=== PATIENT | male | born 1945 | race Caucasian/White ===

== ENCOUNTER 2017-11-07 00:02 | Inpatient (IN) | payer MEDICARE, OTHER, SELFPAY ==
[2017-11-07] VITALS (20 sets, daily range): BP systolic 118–164; BP diastolic 64–88; PULSE 65–94; RESP 10–18; TEMP 36.3–36.9; O2SAT 88–98; BMI 33.8
--- NOTE | 2017-11-07 | PATH_ITS ---
[facility] Accession Number: [id number] . 01 Material submitted: . GALLBLADDER AND CONTENTS . 02 Diagnosis: Gallbladder and Contents, Laparoscopic Cholecystectomy: Acute and gangrenous cholecystitis. [facility]/11/09/2017 . 02 Electronically signed: . Omaira Tomas MD, Pathologist NPI- [id number] . 01 Gross description: . Received in formalin, labeled gallbladder and contents, is an opened gallbladder (length-8.5 cm, diameter-4.3 cm) with a mortensen-castillo smooth and shiny serosa and a patent cystic duct. No lymph nodes are identified. The lumen contains red-brown solid soft friable material. No calculi are identified. The mucosa is red-brown and green with focal erosion and smooth and flat areas. The wall is up to 0.2 cm thick. No nodules, masses or lesions are identified. Section code: (A1) cystic duct resection margin and two serial sections from the body; (A2) two longitudinal sections from the fundus. ([id number]) /[facility] . 02 Pathologist provided ICD-10: K81.0 . 02 CPT . 195104 Performed at: 01 [facility] [address], [place], [place] [id number] MD Thee Bashir MD Phone: [phone] Performed at: 02 [facility] [address] [place], [place] [id number] MD Dylan Escobar MD Phone: [phone]
--- NOTE | 2017-11-07 00:15 | DI.US.S_ITS ---
PROCEDURE: US ABDOMEN COMPLETE INDICATIONS: 72-year-old man with severe epigastric pain TECHNIQUE: Real-time scanning was performed of the abdominal and retroperitoneal organs, with image documentation. COMPARISON: None. FINDINGS: Liver: Liver is normal in size and homogeneous in echotexture. There are a couple of simple appearing cysts in the left hepatic lobe measuring 2.1 cm and 1.9 cm, respectively. Gallbladder: There is a 1.8 cm non-mobile stone in the gallbladder neck. No gallbladder wall thickening, pericholecystic fluid or sonographic Saavedra's sign. Biliary ducts: Intrahepatic bile ducts are non-dilated. Extrahepatic bile duct caliber measures 4.8 mm. Normal is 6-7 mm or less in diameter, or 10 mm or less post-cholecystectomy. Pancreas: Visualized portions of the pancreas are sonographically normal. Spleen: Spleen is normal in size and homogeneous in echotexture. Kidneys: Kidneys are normal in size and echotexture. Right kidney measures 11.9 cm long; left kidney measures 10.5 cm long. No hydronephrosis or nephrolithiasis. No solid masses. Aorta: Visualized aorta is normal in caliber at less than 3 cm. Iliacs: Proximal common iliac arteries are obscured by overlying bowel gas. IVC: Intrahepatic inferior vena cava is not visualized. Miscellaneous: No free abdominal fluid. IMPRESSION: 1. Cholelithiasis. There is a 1.8 cm non-mobile stone in the gallbladder neck. No collateral thickening, pericholecystic fluid collection or sonographic Saavedra sign. 2. A couple of simple cysts in the left hepatic lobe. No significant discrepancy with the shift superintendent radiology preliminary report. Dictated by: Ledy Artis M.D. on 11/07/2017 at 7:54 Approved by: Ledy Artis M.D. on 11/07/2017 at 7:59
[2017-11-07] MEDS: SODIUM CHLORIDE 0.9% 1,000 ML 1000 ML IV (00:39)
[2017-11-07] MEDS: ONDANSETRON 4 MG/2 ML INJ IV (00:40)
[2017-11-07] MEDS: HYDROMORPHONE 0.5 MG INJ IV ×2 (00:43→02:46)
[2017-11-07 00:44] LABS: Add Manual Diff / Slide Review NO; Basophils Percent Auto 0.3 % (0-2); Eosinophils Percent Auto 0.3 % (2-4); Hematocrit 43.1 % (41-53); Hemoglobin 14.5 g/dL (13.5-17.5); Lymphocytes Percent Auto 2.7 % (25-40); Mean Corpuscular HGB Conc 33.6 % (30-36); Mean Corpuscular Hemoglobin 29.8 PG (26-34); Mean Corpuscular Volume 88.8 fL (80-100); Monocytes Percent Auto 7.2 % (3-14); Neutrophils Absolute Auto 19700 /uL (3000-5900); Neutrophils Percent Auto 89.5 % (50-75); Platelet Count 135 X10^3/uL (150-400); Red Blood Cell Count 4.85 X10^6/uL (4.5-5.9); Red Cell Distribution Width 14.2 % (11.6-14.8)
[2017-11-07 00:55] LABS: Alanine Aminotransferase 35 IU/L (21-72); Albumin 3.8 g/dL (3.5-5.0); Albumin Globulin Ratio 1.4 (1.0-2.8); Alkaline Phosphatase 102 U/L (38-126); Aspartate Aminotransferase 31 IU/L (17-59); Bilirubin Total 1.2 mg/dL (0.2-1.3); Calcium 8.9 mg/dL (8.4-10.2); Creatine Kinase 49 U/L (55-170); Estimated Glomerular Filt Rate > 60.0 mL/min (>60); Globulin 2.8 g/dL (1.7-4.1); Glucose 127 mg/dL (80-110); Lipase 25 U/L (23-300); Sodium 138 mmol/L (137-145); Total Protein 6.6 g/dL (6.3-8.2)
[2017-11-07 00:58] LABS: HEMOLYSIS 80 (0-50)
[2017-11-07 00:59] LABS: Potassium 3.9 mmol/L (3.4-5.1)
[2017-11-07 01:07] LABS: Troponin I < 0.012 ng/mL (0.01-0.034)
--- NOTE | 2017-11-07 01:38 | ED_ITS ---
HPI - Abdominal Pain General Chief Complaint: Abdominal Pain Stated Complaint: STATES CHEST PAIN BELOW DIAPHRAGM Time Seen by Provider: 11/07/17 00:05 Source: patient and family Mode of arrival: ambulatory Limitations: no limitations History of Present Illness HPI narrative: Patient presents to the emergency department today with a chief complaint of severe epigastric pain with radiation to his back that started tonight at 6:00 p.m. he denies provocation or palliation of his pain. He states he is nauseated but denies any vomiting. He had similar symptoms a few days ago that lasted about 3 hr and were perhaps more severe. He denies associated symptoms such as dizziness, lightheadedness or weakness. He denies any shortness of breath. He denies alcohol or history of gallbladder or pancreas problems. MD complaint: abdominal pain Onset (ago): hour(s) Pain Consistency: constant Location: epigastric Severity: severe Quality: stabbing Radiation: back Migration to: no migration Relieving factors: nothing Exacerbating factors: nothing Associated symptoms: nausea Related Data Home Medications Medication Instructions Recorded Confirmed amlodipine 11/07/17 atorvastatin 11/07/17 citalopram 11/07/17 finasteride 11/07/17 omeprazole 11/07/17 tamsulosin 11/07/17 Allergies Allergy/AdvReac Type Severity Reaction Status Date / Time No Known Drug Allergies Allergy Verified 11/07/17 00:39 Review of Systems Review of Systems All systems reviewed & are unremarkable except as noted in HPI and below Constitutional Denies chills, Denies fever(s), Denies lethargy and Denies weakness Eyes Denies change in vision, Denies eye discharge, Denies irritation and Denies loss of vision Cardiovascular Denies chest pain, Denies irregular heart rhythm, Denies lightheadedness, Denies palpitations and Denies orthopnea Gastrointestinal Gastrointestinal: Reports abdominal pain, Denies change in bowel habits, Denies diarrhea, Denies nausea and Denies vomiting Genitourinary Denies hematuria, Denies flank pain, Denies urinary incontinence and Denies urinary urgency Musculoskeletal Denies back pain, Denies muscle weakness, Denies numbness and Denies tingling Neurologic Denies confusion, Denies loss of vision, Denies numbness, Denies tingling and Denies weakness Psychiatric Denies anxiety, Denies confusion, Denies depression, Denies homicidal ideation and Denies suicidal ideation Endocrine Denies palpitations Hematologic/Lymphatic Denies easy bruising Exam Narrative Exam Narrative: Pleasant 72-year-old male in no obvious, significant stress Initial Vital Signs Initial Vital Signs: Vital Signs Temperature 97.6 F 11/07/17 00:13 Pulse Rate 86 11/07/17 00:13 Respiratory Rate 18 11/07/17 00:13 Blood Pressure 164/88 H 11/07/17 00:13 Pulse Oximetry 96 11/07/17 00:13 Const General: cooperative and well developed Nutritional Appearance: well nourished Orientation: alert, awake, oriented x3 and not confused HENIN Head: normocephalic and atraumatic Ears: external ears normal and TM's normal bilaterally Nose: external nose normal and No nasal discharge Face and sinus: sinuses nontender, face symmetric, no sinus tenderness and No dry mucous membranes Mouth: oral mucosae normal and moist mucous membranes Teeth and gingiva: dentition normal Throat: tonsils normal and uvula midline Chest Chest: normal inspection of the chest Resp Effort & Inspection: normal respiratory effort, able to speak in complete sentences, no respiratory distress and no use of accessory muscles Auscultation: clear to auscultation bilaterally, no rales, no rhonchi and no wheezes GI Inspection: non-distended Palpation: soft, no hepatosplenomegaly, No guarding, No pulsatile mass and tender Auscultation: normal bowel sounds Back/Spine/Pelvis Back: No CVA tenderness Cervical Spine: cervical ROM normal and No pain with cervical ROM Thoracic/Lumbar Spine: thoracic and lumbar spine normal to inspection Neuro General: alert, oriented x3, gait normal and no focal motor deficits Speech: speech normal Psych Appearance: well kempt Mental Status: mental status grossly normal Attitude: cooperative Thought Content: normal and suicidality Judgment: judgment good Course Orders Ordered: ED Orders 11/07/17 00:15 US abdomen complete Stat 11/07/17 00:16 EKG-12 Lead Stat 11/07/17 00:39 Complete Blood Count AUTO DIFF Stat Comprehensive Metabolic Panel Stat Lipase Stat Troponin with CK Cardiac Panel Stat Sodium Chloride (Normal Saline 0.9%) 1,000 mls @ 150 mls/hr IV CONT LEWIS Last Admin: 11/07/17 02:24 Dose: 150 mls/hr Piperacillin/Tazobactam/Dextrose (Zosyn) 3.375 gm in 50 mls @ 100 mls/hr IV Q6H LEWIS Ondansetron HCl (Zofran) 4 mg IV Q4HR PRN PRN Reason: Nausea And Vomiting Last Admin: 11/07/17 00:40 Dose: 4 mg Discontinued Medications Hydromorphone HCl (Dilaudid) 0.5 mg IV NOW ONE Stop: 11/07/17 00:17 Last Admin: 11/07/17 00:43 Dose: 0.5 mg Sodium Chloride (Normal Saline 0.9%) 1,000 mls @ 1,000 mls/hr IV BOLUS ONE Stop: 11/07/17 01:15 Last Infusion: 11/07/17 01:36 Dose: 0 mls/hr Admin: 11/07/17 00:39 Dose: 1,000 mls/hr Consultations Consultation #1: Upon receipt of ultrasound I placed a call to the on-call surgeon, Dr. Weaver. We discussed his history and physical as well as elevated white blood cell count and ultrasound findings and felt this was sufficient for diagnosis for acute cholecystitis. She recommends admission, IV fluids at 150 mL/hr and Zosyn. Time: 01:37 Vital Signs - 8 hr 11/07/17 00:13 Temperature 97.6 F Pulse Rate 86 Respiratory Rate 18 Blood Pressure 164/88 H Pulse Oximetry 96 MDM - Abdominal Pain Lab Data Result diagrams: 11/07/17 00:39 11/07/17 00:39 Lab Results 11/07/17 11/07/17 Range/Units 00:39 00:39 WBC 22.0 H (4.5-11.0) X10^3/uL RBC 4.85 (4.5-5.9) X10^6/uL Hgb 14.5 (13.5-17.5) g/dL Hct 43.1 (41-53) % MCV 88.8 (80-100) fL MCH 29.8 (26-34) PG MCHC 33.6 (30-36) % RDW 14.2 (11.6-14.8) % Plt Count 135 L (150-400) X10^3/uL Neut % (Auto) 89.5 H (50-75) % Lymph % (Auto) 2.7 L (25-40) % [place] % (Auto) 7.2 (3-14) % Eos % (Auto) 0.3 L (2-4) % Baso % (Auto) 0.3 (0-2) % Neut # (Auto) 24656 H (4243-6371) /uL Sodium 138 (137-145) mmol/L Potassium 3.9 (3.4-5.1) mmol/L Chloride 100.0 (98-107) mmol/L Carbon Dioxide 27.0 (22-32) mmol/L BUN 25.0 H (9-20) mg/dL Creatinine 1.00 (0.66-1.25) mg/dL Estimated GFR > 60.0 (>60) mL/min BUN/Creatinine Ratio 25.0 H (6-22) Glucose 127 H (80-110) mg/dL Calcium 8.9 (8.4-10.2) mg/dL Total Bilirubin 1.2 (0.2-1.3) mg/dL AST 31 (17-59) IU/L ALT 35 (21-72) IU/L Alkaline Phosphatase 102 (38-126) U/L Total Creatine Kinase 49 L (55-170) U/L Troponin I < 0.012 (0.01-0.034) ng/mL Total Protein 6.6 (6.3-8.2) g/dL Albumin 3.8 (3.5-5.0) g/dL Globulin 2.8 (1.7-4.1) g/dL Albumin/Globulin Ratio 1.4 (1.0-2.8) Lipase 25 (23-300) U/L Discharge Plan Departure Patient Disposition: Admitted As Inpatient Clinical Impression: Acute cholecystitis Admit Date/Time: 11/07/17 02:24 Admit Provider: Lyubov Weaver
[2017-11-07] MEDS: SODIUM CHLORIDE 0.9% 1,000 ML 150 ML IV (02:24)
[2017-11-07] MEDS: PIPERACILLIN-TAZO 3.375 GM/50 ML FROZ.PIGGY IV ×4 (02:46→20:04)
--- NOTE | 2017-11-07 02:57 | PC.NURSE ---
PT MEDICATED WITH ADDITIONAL 2ND DOSE OF DILAUDID BEFORE TRANSFERRING TO ADMITTED ROOM PER PT'S REQUEST.
[2017-11-07 03:20] LABS: Appearance Urine UA CLEAR; Bilirubin Urine UA NEGATIVE (NEGATIVE); Color Urine UA YELLOW; Glucose Urine UA NEGATIVE (Negative); Ketones Urine UA TRACE (NEGATIVE); Leukocyte Esterase Urine UA NEGATIVE (NEGATIVE); Nitrite Urine UA NEGATIVE (NEGATIVE); Occult Blood Urine UA TRACE-LYSED (Negative); Protein Urine UA NEGATIVE (Negative); Urobilinogen Urine UA 0.2 E.U./dL (0.2)
[2017-11-07 03:21] LABS: Culture Indicated Urine Cult Not Indicated; RBC Urine 0-1/HPF (0-5/HPF)
--- NOTE | 2017-11-07 05:01 | PC.ADMIT ---
[facility] Admission Note: The patient,Billy Velasquez,72 y/o, was given written information regarding hospital policies, unit procedures and contact persons. Patient's smoking status: Never smoker. Vital Signs - 8 hr 11/07/17 00:13 11/07/17 02:58 11/07/17 03:14 Temperature 97.6 F 98.0 F Pulse Rate 86 74 76 Respiratory Rate 18 14 18 Blood Pressure 164/88 H 132/80 H 136/81 H Pulse Oximetry 96 95 94 Pt arrived with and mother. Pt denied pain, stated he was comfortable. PT tolerating fluids well. Pt and family oriented to hospital room and procedures. PT voided in ED, not measured- will continue to monitor. Pt bed in lowest, locked position. belongings and call light within reach. Pt uses call light. ambulates steady gait. Pt compliant and good historian with admission process. will continue to monitor. questions answered, pt states he is going to fall asleep.
[2017-11-07] MEDS: DEXTROSE 5%-0.45% NS 1,000 ML 100 ML IV ×3 (11:30→23:50)
[2017-11-07 13:09] LABS: Add Manual Diff / Slide Review NO; Basophils Percent Auto 0.4 % (0-2); Eosinophils Percent Auto 0.7 % (2-4); Hematocrit 39.6 % (41-53); Hemoglobin 13.2 g/dL (13.5-17.5); Lymphocytes Percent Auto 4.5 % (25-40); Mean Corpuscular HGB Conc 33.3 % (30-36); Mean Corpuscular Hemoglobin 29.6 PG (26-34); Mean Corpuscular Volume 88.9 fL (80-100); Monocytes Percent Auto 7.3 % (3-14); Neutrophils Absolute Auto 15200 /uL (3000-5900); Neutrophils Percent Auto 87.1 % (50-75); Platelet Count 105 X10^3/uL (150-400); Red Blood Cell Count 4.45 X10^6/uL (4.5-5.9); Red Cell Distribution Width 14.3 % (11.6-14.8); White Blood Cell Count 17.5 X10^3/uL (4.5-11.0)
[2017-11-07 13:40] LABS: Alanine Aminotransferase 81 IU/L (21-72); Albumin 2.8 g/dL (3.5-5.0); Albumin Globulin Ratio 1.2 (1.0-2.8); Alkaline Phosphatase 105 U/L (38-126); Aspartate Aminotransferase 64 IU/L (17-59); BUN Creatinine Ratio 22.2 (6-22); Bilirubin Total 1.4 mg/dL (0.2-1.3); Calcium 8.3 mg/dL (8.4-10.2); Estimated Glomerular Filt Rate > 60.0 mL/min (>60); Globulin 2.4 g/dL (1.7-4.1); Glucose 105 mg/dL (80-110); HEMOLYSIS 27 (0-50); Potassium 3.8 mmol/L (3.4-5.1); Sodium 139 mmol/L (137-145); Total Protein 5.2 g/dL (6.3-8.2)
[2017-11-07] MEDS: HYDROMORPHONE PCA 6 MG/30 ML PCA.VIAL 0.7 MG IV (14:29)
--- NOTE | 2017-11-07 15:01 | PC.NURSE ---
Dayshift Note: Pt with uneventful shift. Pt denies pain or nausea. Abdomen slightly firm and distended. Pt on RA, continuous pulse ox, 92-95%. 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 NPO and awaiting surgery. Will continue to monitor, notify MD with changes.
--- NOTE | 2017-11-07 16:52 | PM.HP.1 ---
History of Present Illness Chief complaint: STATES CHEST PAIN BELOW DIAPHRAGM Narrative: Billy Vleasquez is a 72 year old male who presented to the emergency department with complaint of right upper quadrant pain and bloating. He reports that he had a similar pain about 3 days ago and it was perhaps even more severe than the pain he experienced last evening. That pain resolved after about 3 hr but he was not willing to go through that again for another 3 hr. He was seen and evaluated in the emergency room and diagnosed with acute cholecystitis. He has been admitted to my service for definitive treatment. Patient History Medical History Enlarged prostate (Acute) GERD (gastroesophageal reflux disease) (Acute) High cholesterol (Acute) Hypertension (Acute) Parietal foramina (Acute) Sleep apnea (Acute) Tourettes disease (Acute) Surgical History H/O removal of cyst (Acute) H/O shoulder surgery (Acute) History of spinal fusion (Acute) S/P mitral valve repair (Acute) Family & Social History Family History: Reviewed 11/07/17 by Lyubov Weaver MD Tobacco & Substance Use Smoking Status: Never smoker Alcohol intake: never Meds Home Medications Medication Instructions Recorded Confirmed Type Centrum Silver Men 1 caplet PO DAILY 11/07/17 11/07/17 History amlodipine 2.5 mg PO DAILY 11/07/17 11/07/17 History aspirin 81 mg PO DAILY 11/07/17 11/07/17 History atorvastatin 40 mg PO DAILY 11/07/17 11/07/17 History cholecalciferol (vitamin D3) 2,000 unit PO DAILY 11/07/17 11/07/17 History [Vitamin D3] citalopram 40 mg PO BID 11/07/17 11/07/17 History finasteride 5 mg PO DAILY 11/07/17 11/07/17 History omeprazole 20 mg PO DAILY 11/07/17 11/07/17 History tamsulosin 0.4 mg PO DAILY 11/07/17 11/07/17 History Allergies Allergy/AdvReac Type Severity Reaction Status Date / Time No Known Drug Allergies Allergy Verified 11/07/17 00:39 Review of Systems Review of Systems All systems reviewed & are unremarkable except as noted in HPI and below Exam Vital Signs (past 8 hours): Vital Signs - 8 hr 11/07/17 13:00 11/07/17 15:45 11/07/17 16:20 Temperature 97.9 F 98.4 F 98.0 F Pulse Rate 73 72 80 Respiratory Rate 16 18 16 Blood Pressure 129/74 H 126/73 H Pulse Oximetry 95 94 94 11/07/17 16:28 Temperature Pulse Rate Respiratory Rate Blood Pressure 118/80 Pulse Oximetry Pulse Oximetry 94 Oxygen Delivery Method Room Air Narrative Exam Narrative: Very pleasant gentleman in no obvious distress. He denies pain currently and reports he feels better than he did at the time of admission HEENT: Normocephalic and atraumatic, pupils equal round reactive to light accommodation with anicteric sclera Lungs: Clear to auscultation bilaterally Heart: Regular rate and rhythm without murmur Abdomen: Soft, tender to palpation in the right upper quadrant with some voluntary guarding. Active bowel sounds. Multiple healed abdominal incisions without defect. Extremities: Warm and well perfused. Objective Labs Result Diagrams: 11/07/17 13:00 11/07/17 13:00 Labs: Laboratory Results - last 24 hr 11/07/17 11/07/17 11/07/17 00:39 00:39 02:45 WBC 22.0 H RBC 4.85 Hgb 14.5 Hct 43.1 MCV 88.8 MCH 29.8 MCHC 33.6 RDW 14.2 Plt Count 135 L Neut % (Auto) 89.5 H Lymph % (Auto) 2.7 L [place] % (Auto) 7.2 Eos % (Auto) 0.3 L Baso % (Auto) 0.3 Neut # (Auto) 66426 H Sodium 138 Potassium 3.9 Chloride 100.0 Carbon Dioxide 27.0 BUN 25.0 H Creatinine 1.00 Estimated GFR > 60.0 BUN/Creatinine Ratio 25.0 H Glucose 127 H Calcium 8.9 Total Bilirubin 1.2 AST 31 ALT 35 Alkaline Phosphatase 102 Total Creatine Kinase 49 L Troponin I < 0.012 Total Protein 6.6 Albumin 3.8 Globulin 2.8 Albumin/Globulin Ratio 1.4 Lipase 25 Urine Color Yellow Urine Appearance Clear Urine pH 6.0 Ur Specific [place] 1.010 Urine Protein Negative Urine Glucose (UA) Negative Urine Ketones Trace H Urine Occult Blood Trace-lysed Urine Nitrate Negative Urine Bilirubin Negative Urine Urobilinogen 0.2 Ur Leukocyte Esterase Negative Urine RBC 0-1/hpf Ur Culture Indicated? Cult not indicated Micro UA Comment Not Reportable 11/07/17 11/07/17 13:00 13:00 WBC 17.5 H RBC 4.45 L Hgb 13.2 L Hct 39.6 L MCV 88.9 MCH 29.6 MCHC 33.3 RDW 14.3 Plt Count 105 L Neut % (Auto) 87.1 H Lymph % (Auto) 4.5 L [place] % (Auto) 7.3 Eos % (Auto) 0.7 L Baso % (Auto) 0.4 Neut # (Auto) 96691 H Sodium 139 Potassium 3.8 Chloride 104.0 Carbon Dioxide 26.0 BUN 20.0 Creatinine 0.90 Estimated GFR > 60.0 BUN/Creatinine Ratio 22.2 H Glucose 105 Calcium 8.3 L Total Bilirubin 1.4 H AST 64 H ALT 81 H Alkaline Phosphatase 105 Total Creatine Kinase Troponin I Total Protein 5.2 L Albumin 2.8 L Globulin 2.4 Albumin/Globulin Ratio 1.2 Lipase Urine Color Urine Appearance Urine pH Ur Specific [place] Urine Protein Urine Glucose (UA) Urine Ketones Urine Occult Blood Urine Nitrate Urine Bilirubin Urine Urobilinogen Ur Leukocyte Esterase Urine RBC Ur Culture Indicated? Micro UA Comment Patient: Billy Velasquez MR#: [id number] : 1945 Acct:[id number] Age/Sex: 72 / M Date of Service: 11/07/17 Loc: 213-1 Accession Number: [id number] Procedure: US abdomen complete Ordering Provider: Keagan Wang D.O. PROCEDURE: US ABDOMEN COMPLETE INDICATIONS: 72-year-old man with severe epigastric pain TECHNIQUE: Real-time scanning was performed of the abdominal and retroperitoneal organs, with image documentation. COMPARISON: None. FINDINGS: Liver: Liver is normal in size and homogeneous in echotexture. There are a couple of simple appearing cysts in the left hepatic lobe measuring 2.1 cm and 1.9 cm, respectively. Gallbladder: There is a 1.8 cm non-mobile stone in the gallbladder neck. No gallbladder wall thickening, pericholecystic fluid or sonographic Saavedra's sign. Biliary ducts: Intrahepatic bile ducts are non-dilated. Extrahepatic bile duct caliber measures 4.8 mm. Normal is 6-7 mm or less in diameter, or 10 mm or less post-cholecystectomy. Pancreas: Visualized portions of the pancreas are sonographically normal. Spleen: Spleen is normal in size and homogeneous in echotexture. Kidneys: Kidneys are normal in size and echotexture. Right kidney measures 11.9 cm long; left kidney measures 10.5 cm long. No hydronephrosis or nephrolithiasis. No solid masses. Aorta: Visualized aorta is normal in caliber at less than 3 cm. Iliacs: Proximal common iliac arteries are obscured by overlying bowel gas. IVC: Intrahepatic inferior vena cava is not visualized. Miscellaneous: No free abdominal fluid. IMPRESSION: 1. Cholelithiasis. There is a 1.8 cm non-mobile stone in the gallbladder neck. No collateral thickening, pericholecystic fluid collection or sonographic Saavedra sign. 2. A couple of simple cysts in the left hepatic lobe. No significant discrepancy with the night warehouse manager radiology preliminary report. Dictated by: Ledy Artis M.D. on 11/07/2017 at 7:54 Approved by: Ledy Artis M.D. on 11/07/2017 at 7:59 Assessment & Plan Plan: Plan: Acute cholecystitis and cholelithiasis and a fairly healthy 72-year-old gentleman. We have discussed risks and benefits of laparoscopic cholecystectomy the patient has expressed desire to have procedure.
--- NOTE | 2017-11-07 16:59 | P.HP_ITS ---
History of Present Illness Chief complaint: STATES CHEST PAIN BELOW DIAPHRAGM Narrative: Billy Velasquez is a 72 year old male who presented to the emergency department with complaint of right upper quadrant pain and bloating. He reports that he had a similar pain about 3 days ago and it was perhaps even more severe than the pain he experienced last evening. That pain resolved after about 3 hr but he was not willing to go through that again for another 3 hr. He was seen and evaluated in the emergency room and diagnosed with acute cholecystitis. He has been admitted to my service for definitive treatment. Patient History Medical History Enlarged prostate (Acute) GERD (gastroesophageal reflux disease) (Acute) High cholesterol (Acute) Hypertension (Acute) Parietal foramina (Acute) Sleep apnea (Acute) Tourettes disease (Acute) Surgical History H/O removal of cyst (Acute) H/O shoulder surgery (Acute) History of spinal fusion (Acute) S/P mitral valve repair (Acute) Family & Social History Family History: Reviewed 11/07/17 by Lyubov Weaver MD Tobacco & Substance Use Smoking Status: Never smoker Alcohol intake: never Meds Home Medications Medication Instructions Recorded Confirmed Type Centrum Silver Men 1 caplet PO DAILY 11/07/17 11/07/17 History amlodipine 2.5 mg PO DAILY 11/07/17 11/07/17 History aspirin 81 mg PO DAILY 11/07/17 11/07/17 History atorvastatin 40 mg PO DAILY 11/07/17 11/07/17 History cholecalciferol (vitamin D3) 2,000 unit PO DAILY 11/07/17 11/07/17 History [Vitamin D3] citalopram 40 mg PO BID 11/07/17 11/07/17 History finasteride 5 mg PO DAILY 11/07/17 11/07/17 History omeprazole 20 mg PO DAILY 11/07/17 11/07/17 History tamsulosin 0.4 mg PO DAILY 11/07/17 11/07/17 History Allergies Allergy/AdvReac Type Severity Reaction Status Date / Time No Known Drug Allergies Allergy Verified 11/07/17 00:39 Review of Systems Review of Systems All systems reviewed & are unremarkable except as noted in HPI and below Exam Vital Signs (past 8 hours): Vital Signs - 8 hr 3 11/07/17 13:00 11/07/17 15:45 11/07/17 16:20 Temperature 97.9 F 98.4 F 98.0 F Pulse Rate 73 72 80 Respiratory Rate 16 18 16 Blood Pressure 129/74 H 126/73 H Pulse Oximetry 95 94 94 3 11/07/17 16:28 Temperature Pulse Rate Respiratory Rate Blood Pressure 118/80 Pulse Oximetry Pulse Oximetry 94 Oxygen Delivery Method Room Air Narrative Exam Narrative: Very pleasant gentleman in no obvious distress. He denies pain currently and reports he feels better than he did at the time of admission HEENT: Normocephalic and atraumatic, pupils equal round reactive to light accommodation with anicteric sclera Lungs: Clear to auscultation bilaterally Heart: Regular rate and rhythm without murmur Abdomen: Soft, tender to palpation in the right upper quadrant with some voluntary guarding. Active bowel sounds. Multiple healed abdominal incisions without defect. Extremities: Warm and well perfused. Objective Labs Result Diagrams: 11/07/17 13:00 11/07/17 13:00 Labs: Laboratory Results - last 24 hr 11/07/17 11/07/17 11/07/17 00:39 00:39 02:45 WBC 22.0 H RBC 4.85 Hgb 14.5 Hct 43.1 MCV 88.8 MCH 29.8 MCHC 33.6 RDW 14.2 Plt Count 135 L Neut % (Auto) 89.5 H Lymph % (Auto) 2.7 L Fajardo % (Auto) 7.2 Eos % (Auto) 0.3 L Baso % (Auto) 0.3 Neut # (Auto) 88416 H Sodium 138 Potassium 3.9 Chloride 100.0 Carbon Dioxide 27.0 BUN 25.0 H Creatinine 1.00 Estimated GFR > 60.0 BUN/Creatinine Ratio 25.0 H Glucose 127 H Calcium 8.9 Total Bilirubin 1.2 AST 31 ALT 35 Alkaline Phosphatase 102 Total Creatine Kinase 49 L Troponin I < 0.012 Total Protein 6.6 Albumin 3.8 Globulin 2.8 Albumin/Globulin Ratio 1.4 Lipase 25 Urine Color Yellow Urine Appearance Clear Urine pH 6.0 Ur Specific [place] 1.010 Urine Protein Negative Urine Glucose (UA) Negative Urine Ketones Trace H Urine Occult Blood Trace-lysed Urine Nitrate Negative Urine Bilirubin Negative Urine Urobilinogen 0.2 Ur Leukocyte Esterase Negative Urine RBC 0-1/hpf Ur Culture Indicated? Cult not indicated Micro UA Comment Not Reportable 11/07/17 11/07/17 13:00 13:00 WBC 17.5 H RBC 4.45 L Hgb 13.2 L Hct 39.6 L MCV 88.9 MCH 29.6 MCHC 33.3 RDW 14.3 Plt Count 105 L Neut % (Auto) 87.1 H Lymph % (Auto) 4.5 L F[place]ardo % (Auto) 7.3 Eos % (Auto) 0.7 L Baso % (Auto) 0.4 Neut # (Auto) 20831 H Sodium 139 Potassium 3.8 Chloride 104.0 Carbon Dioxide 26.0 BUN 20.0 Creatinine 0.90 Estimated GFR > 60.0 BUN/Creatinine Ratio 22.2 H Glucose 105 Calcium 8.3 L Total Bilirubin 1.4 H AST 64 H ALT 81 H Alkaline Phosphatase 105 Total Creatine Kinase Troponin I Total Protein 5.2 L Albumin 2.8 L Globulin 2.4 Albumin/Globulin Ratio 1.2 Lipase Urine Color Urine Appearance Urine pH Ur Specific [place] Urine Protein Urine Glucose (UA) Urine Ketones Urine Occult Blood Urine Nitrate Urine Bilirubin Urine Urobilinogen Ur Leukocyte Esterase Urine RBC Ur Culture Indicated? Micro UA Comment Patient: Billy Velasquez MR#: [id number] : 1945 Acct:[id number] Age/Sex: 72 / M Date of Service: 11/07/17 Loc: 213-1 Accession Number: [id number] Procedure: US abdomen complete Ordering Provider: Keagan Wang D.O. PROCEDURE: US ABDOMEN COMPLETE INDICATIONS: 72-year-old man with severe epigastric pain TECHNIQUE: Real-time scanning was performed of the abdominal and retroperitoneal organs, with image documentation. COMPARISON: None. FINDINGS: Liver: Liver is normal in size and homogeneous in echotexture. There are a couple of simple appearing cysts in the left hepatic lobe measuring 2.1 cm and 1.9 cm, respectively. Gallbladder: There is a 1.8 cm non-mobile stone in the gallbladder neck. No gallbladder wall thickening, pericholecystic fluid or sonographic Saavedra's sign. Biliary ducts: Intrahepatic bile ducts are non-dilated. Extrahepatic bile duct caliber measures 4.8 mm. Normal is 6-7 mm or less in diameter, or 10 mm or less post-cholecystectomy. Pancreas: Visualized portions of the pancreas are sonographically normal. Spleen: Spleen is normal in size and homogeneous in echotexture. Kidneys: Kidneys are normal in size and echotexture. Right kidney measures 11.9 cm long; left kidney measures 10.5 cm long. No hydronephrosis or nephrolithiasis. No solid masses. Aorta: Visualized aorta is normal in caliber at less than 3 cm. Iliacs: Proximal common iliac arteries are obscured by overlying bowel gas. IVC: Intrahepatic inferior vena cava is not visualized. Miscellaneous: No free abdominal fluid. IMPRESSION: 1. Cholelithiasis. There is a 1.8 cm non-mobile stone in the gallbladder neck. No collateral thickening, pericholecystic fluid collection or sonographic Saavedra sign. 2. A couple of simple cysts in the left hepatic lobe. No significant discrepancy with the cnc machinist 2nd shift radiology preliminary report. Dictated by: Ledy Artis M.D. on 11/07/2017 at 7:54 Approved by: Ledy Artis M.D. on 11/07/2017 at 7:59 Assessment & Plan Plan: Plan: Acute cholecystitis and cholelithiasis and a fairly healthy 72-year-old gentleman. We have discussed risks and benefits of laparoscopic cholecystectomy the patient has expressed desire to have procedure.
[2017-11-07] MEDS: LACTATED RINGERS 1,000 ML 42 ML IV ×2 (17:00→18:56)
--- NOTE | 2017-11-07 17:38 | SUR.OPER ---
Supine on padded OR bed, head on pillow, left arm padded and tucked at side, right arm is extended 90 degrees on arm board, legs uncrossed, safety belt at thigh, tape over blanket over lower legs .
--- NOTE | 2017-11-07 17:48 | PC.NURSE ---
Addendum entered by Lynn Covington R.N. 11/07/17 22:37: 2230- Umbilicus bandaid saturated with sang fluid, incision with 2 stitches, changed bandaid, no s/ss infection. Denies nausea, using COMMUNITY RELATIONS LIAISON, with 1mg used this shift. Tolerating water and broth, advanced to regular diet for breakfast. Resting quietly with eyes closed. bed alarm on, call light in reach. Original Note: Addendum entered by Lynn Covington R.N. 11/07/17 19:49: 1930- Pt back from PACU via bed to original room 213. L hand NS @ 21 for ABO's, and dilaudid COMMUNITY RELATIONS LIAISON-0.2/03/23 for pain management. Pt denies pain and nausea at this time. ABD with some distention, 4 lap sites, 3 with lg bandaids, and one underneath [facility] drs for Elijah drain. Elijah drain 40mL out @ 1945. 95% 2L nc, LS clear. Pt wide awake and A/O x3. I.S. provided, cont pulse ox on, telemetry placed back on, ICU notified. Urinal at bedside, ice chips and water on bedside table. Call light in reach and bed alarm on for safety. Original Note: Alka shift- Pt went down to OR @ 1610 for cholecysectomy.
[2017-11-07] MEDS: BUPIVACAINE 0.5% (PF) 30 ML VIAL INJ (17:56)
[2017-11-07] MEDS: LIDOCAINE 1% W/EPI INJ 20 ML INJ (17:58)
--- NOTE | 2017-11-07 18:45 | PM.OP.1 ---
Operative Date/Time/Diagnoses - Date of procedure: 11/07/17 Time of procedure: 18:45 Pre-op diagnosis: Acute cholecystits and cholelithiasis Post-op diagnosis: other (Necrotizing cholecystitis) Procedure & Clinicians Procedure: Laparoscopic Cholecystectomy with RUQ Drain Placement Same procedure as scheduled: Yes Indications: Acute cholecystiti Surgeon: Lyubov Weaver Click Yes if Unassisted: Yes Anesthesia Type: General ([place]) and Local Operative Notes Findings: 1. Acute hemorrhagic cholecystitis with associated right upper quadrant phlegmon 2. Very short cystic duct and prominent common duct 3. Few abdominal adhesions Closure Type: primary Specimen(s): other (Gallbladder in formalin to pathology) Implants & Drains: Nineteen Angolan Elijah drain in the gallbladder fossa Applied: drain(s) Estimated Blood Loss (mL): 250 Blood products transfused: none Procedure in detail: After obtaining informed consent, the patient was brought to the operating room and placed in the supine position on the operating table. Following successful induction of general endotracheal anesthesia, appropriate padding of all bony prominences, and placement of appropriate monitors, the abdomen was prepped and draped in a standard surgical fashion. A timeout was held per SCOAP protocol. Following infiltration with local anesthetic to create a field block, an incision was created superior to the umbilicus and carried down through the skin and subcutaneous tissue to reveal the fascia below. 2-0 Vicryl retention sutures are placed on either side of the midline and the abdomen was entered under direct vision using a 15 blade scalpel. A 10 mm blunt trocar was placed in the abdominal cavity and it was insufflated to 15 mm of Hg pressure. The patient was placed in reverse Trendelenburg position with the left side rotated toward the floor. A second 5 mm trocar was placed in the midepigastrium and 2 more in the right upper quadrant, again after infiltration with local anesthetic and under direct vision with the camera. We immediately noted a large phlegmon in the right upper quadrant. The gallbladder itself was fiery red in color and very thick and friable. The gallbladder was grasped in the fundus and elevated up over the liver. At this point the fundus of the gallbladder tore spilling bile into the abdominal cavity. The bile was aspirated and the procedure continued. Fairly dense adhesions were noted at the neck of the gallbladder. These were gingerly taken down to reveal a very short cystic duct and a very prominent common bile duct. Because of the orientation of the anatomy and the short length of the cystic duct, it did not feel it was safe to perform a cholangiogram. I elected to further define the cholecystoduodenal ligament. The cystic duct and artery were carefully identified with gentle dissection. 3 clips were placed proximally on the cystic duct and one distally. The duct was divided between these clips. 2 clips were placed proximally on the cystic artery and one distally. The artery was divided between these clips. The common duct was carefully avoided throughout the procedure. Upon elevating the neck of the gallbladder, it from the bed of the liver. It was placed in an Endoscopic bag and removed via the umbilical port. The camera was returned to the abdominal cavity and the operative site examined carefully. Hemostasis was obtained with cautery. Due to the degree of infection and blood loss from the liver bed, we elected to place a drain in the gallbladder fossa. This was brought out through the right upper quadrant and sewn into place. The abdomen was irrigated copiously with warm saline solution and then aspirated free of all particulate matter and fluid. Trochars were then removed under direct vision and the abdomen desufflated by giving the patient a Valsalva maneuver. The umbilical incision was closed with interrupted Prolene and Vicryl sutures. Nylon was placed in the skin incisions at all sites.. All sponge, needle, and instrument counts were correct at the conclusion of the case. The patient was allowed to awaken from anesthesia without difficulty and taken to the post anesthesia care unit in good condition. Complications: none Condition: stable Disposition: PACU Plan for aftercare: 1. Return to [facility] for continued convalescence and antibiotic therapy. 2. Pain control and pulmonary toilet
--- NOTE | 2017-11-07 18:53 | SUR.PHASEI ---
PT ARRIVED TO PACU WITH ORAL AIRWAY IN PLACE. ORAL AIRWAY REMOVED IMMEDIATELY UPON ARRIVAL TO PACU BY ANESTHESIOLOGIST.
--- NOTE | 2017-11-07 19:12 | SUR.PHASEI ---
REPORT CALLED TO CHLOE CRUZ ON ACUTE CARE FLOOR. PT IN STABLE CONDITION, VSS. IV SITE CLEAR. DRSG'S TO ABD C/D/I. CHANDLER DRAIN INTACT AND DRAINING BRIGHT RED BLOOD. PT TOLERATING ORAL INTAKE WITHOUT ANY DIFFICULTLY. PT DENIES ANY PAIN/DISCOMFORT OR NAUSEA. PT APPEARS COMFORTABLE AT THIS TIME AND CONVERSING WITH RN. PT BEING TRANSFERED TO ACUTE CARE FLOOR.
[2017-11-07] MEDS: CITALOPRAM 20 MG TABLET 40 MG PO (20:48)
[2017-11-07] MEDS: HYDROMORPHONE PCA 6 MG/30 ML PCA.VIAL IV (22:30)
[2017-11-08] VITALS (8 sets, daily range): BP systolic 135–154; BP diastolic 73–89; PULSE 60–86; RESP 16–20; TEMP 36.5–36.8; O2SAT 94–97
[2017-11-08] MEDS: PANTOPRAZOLE 40 MG VIAL IV (00:24)
[2017-11-08] MEDS: PIPERACILLIN-TAZO 3.375 GM/50 ML FROZ.PIGGY IV ×4 (01:50→19:02)
--- NOTE | 2017-11-08 06:01 | PC.NURSE ---
third shift lieutenant- Pt A&OX3, able to make needs known using call light, COTTON SAMPLER Dilaudid in place & pt using properly, states effective for pain management. Reports 2-3/10 aching to right side able with movement & with pt's light palpation. Abd soft, BSX4 hypoactive, no flatus. Abd lap sites X4 dressings intact with small amount of sang drainage noted to umbilicus dressing. Elijah drain insitu to RUQ abd, drained approx 30mls of bloody drainage. OOB to BR to void qs, pt aware of need for I/O's. Remained on Telemetry monitoring-NSR X2 documented by LINOLEUM FLOOR INSTALLER, HR 64bpm & regular upon auscultation. Denies chest pain. Continuous O2 monitoring throughout night, When sleeping pt desats to 90% on RA, quickly increases to 94-97% when awake, no distress noted. Weaned from 2L NC at beginning of shift.
[2017-11-08 06:15] LABS: Add Manual Diff / Slide Review NO; Basophils Percent Auto 0.1 % (0-2); Hematocrit 36.4 % (41-53); Hemoglobin 12.3 g/dL (13.5-17.5); Lymphocytes Percent Auto 3.1 % (25-40); Mean Corpuscular HGB Conc 33.7 % (30-36); Mean Corpuscular Hemoglobin 30.2 PG (26-34); Mean Corpuscular Volume 89.5 fL (80-100); Monocytes Percent Auto 2.2 % (3-14); Neutrophils Absolute Auto 9700 /uL (3000-5900); Neutrophils Percent Auto 94.6 % (50-75); Platelet Count 113 X10^3/uL (150-400); Red Blood Cell Count 4.07 X10^6/uL (4.5-5.9); Red Cell Distribution Width 14.2 % (11.6-14.8); White Blood Cell Count 10.2 X10^3/uL (4.5-11.0)
[2017-11-08 06:23] LABS: Alanine Aminotransferase 93 IU/L (21-72); Albumin 3.1 g/dL (3.5-5.0); Albumin Globulin Ratio 1.2 (1.0-2.8); Alkaline Phosphatase 99 U/L (38-126); Aspartate Aminotransferase 63 IU/L (17-59); BUN Creatinine Ratio 18.9 (6-22); Bilirubin Total 0.9 mg/dL (0.2-1.3); Calcium 8.4 mg/dL (8.4-10.2); Estimated Glomerular Filt Rate > 60.0 mL/min (>60); Globulin 2.5 g/dL (1.7-4.1); Glucose 179 mg/dL (80-110); HEMOLYSIS < 15 (0-50); Sodium 139 mmol/L (137-145); Total Protein 5.6 g/dL (6.3-8.2)
[2017-11-08] MEDS: HYDROMORPHONE PCA 6 MG/30 ML PCA.VIAL IV ×2 (06:30→21:23)
[2017-11-08] MEDS: CITALOPRAM 20 MG TABLET 40 MG PO ×2 (08:31→21:21)
[2017-11-08] MEDS: TAMSULOSIN 0.4 MG CAPSULE PO (08:31)
[2017-11-08] MEDS: AMLODIPINE 2.5 MG TABLET PO (08:33)
[2017-11-08] MEDS: FINASTERIDE 5 MG TABLET PO (11:26)
[2017-11-08] MEDS: DEXTROSE 5%-0.45% NS 1,000 ML 100 ML IV (11:27)
--- NOTE | 2017-11-08 14:08 | PC.NURSE ---
PAIN: Denies. Utilized 0 doses of TEACHER [employer]IFT[employer]UDENTS. Consider transitioning to oral pain medications. GI: Bowel tones normoactive. Passing flatus. No nausea, vomiting, diarrhea, abdominal distension. No BM since surgery. CV: Telemetry shows NSR without ectopy. Denies cardiac complaints. SEPSIS: Afebrile, no tachycardia, no tachypnea, UOP >30mL/hr, WBC WNL, on IV Zosyn. No blood cultures pending.
--- NOTE | 2017-11-08 15:00 | P.PN_ITS ---
Subjective Date Patient Seen: 11/08/17 Time Patient Seen: 12:58 Exam Vital Signs (past 8 hours): Vital Signs - 8 hr 3 11/08/17 08:10 11/08/17 08:43 Temperature 97.9 F Pulse Rate 60 Respiratory Rate 16 Blood Pressure 135/78 H Pulse Oximetry 96 97 Pulse Oximetry 97 Fraction of Inspired Oxygen 28 Oxygen Delivery Method Nasal Cannula Oxygen Flow Rate 2 Narrative Exam Narrative: Billy looks much better this afternoon. He reports that he woke up feeling better and he feels his energy is returning. He very much wants to go home Abdomen: Soft, right upper quadrant drain is aravind colored. Not definite bile but certainly a bit concerning appearance. Active bowel sounds. Objective Labs Result Diagrams: 11/08/17 05:36 11/08/17 05:36 Labs: Laboratory Results - last 24 hr 11/08/17 11/08/17 05:36 05:36 WBC 10.2 RBC 4.07 L Hgb 12.3 L Hct 36.4 L MCV 89.5 MCH 30.2 MCHC 33.7 RDW 14.2 Plt Count 113 L Neut % (Auto) 94.6 H Lymph % (Auto) 3.1 L [place] % (Auto) 2.2 L Eos % (Auto) 0.0 L Baso % (Auto) 0.1 Neut # (Auto) 9700 H Sodium 139 Potassium 4.0 Chloride 102.0 Carbon Dioxide 28.0 BUN 17.0 Creatinine 0.90 Estimated GFR > 60.0 BUN/Creatinine Ratio 18.9 Glucose 179 H Calcium 8.4 Total Bilirubin 0.9 AST 63 H ALT 93 H Alkaline Phosphatase 99 Total Protein 5.6 L Albumin 3.1 L Globulin 2.5 Albumin/Globulin Ratio 1.2 Assessment & Plan Plan: Plan: 1. Will send drainage contents for bile 2. If he continues to do well overnight we will plan for discharge tomorrow. If the drain contains bile we may have to send him home with the drain in place.
[2017-11-08] MEDS: ATORVASTATIN 20 MG TABLET 40 MG PO (21:21)
[2017-11-09 00:32] VITALS: BP 142/80; PULSE 63; RESP 18; TEMP 36.7; O2SAT 96
[2017-11-09] MEDS: PANTOPRAZOLE 40 MG VIAL IV (01:47)
[2017-11-09] MEDS: PIPERACILLIN-TAZO 3.375 GM/50 ML FROZ.PIGGY IV ×2 (01:47→07:50)
[2017-11-09 04:41] VITALS: BP 141/73; PULSE 69; RESP 18; TEMP 36.5; O2SAT 96
[2017-11-09] MEDS: HYDROMORPHONE PCA 6 MG/30 ML PCA.VIAL IV (06:00)
[2017-11-09 08:00] VITALS: BP 152/82; PULSE 61; RESP 16; TEMP 36.6; O2SAT 96
[2017-11-09] MEDS: FINASTERIDE 5 MG TABLET PO (08:02)
[2017-11-09] MEDS: TAMSULOSIN 0.4 MG CAPSULE PO (08:02)
[2017-11-09] MEDS: CITALOPRAM 20 MG TABLET 40 MG PO (08:02)
[2017-11-09] MEDS: AMLODIPINE 2.5 MG TABLET PO (08:04)
[2017-11-09 11:53] LABS: Bilirubin Total 3.2 mg/dL (0.2-1.3)
--- NOTE | 2017-11-09 12:10 | P.DS_ITS ---
History of Present Illness Chief complaint: STATES CHEST PAIN BELOW DIAPHRAGM Narrative: Billy Velasquez is a 72 year old male who presented to the emergency room with acute abdominal pain. Discharge Providers Date of admission: 11/07/17 02:24 Discharge provider: Lyubov Weaver MD Summary Discharge Diagnosis: Hemorrhagic cholecystitis Hospital Course: He was found to have acute hemorrhagic cholecystitis and was taken to the operating room for laparoscopic cholecystectomy. The procedure was uneventful but the patient was kept in the hospital due to the level of infection and bleeding risk. Today he is feeling much better. He is tolerating regular diet and has been walking in the halls. Drainage has been minimal and bilirubin is normal. He is discharged to his home in the care of his and [id number]. Status at Discharge Cognitive/behavioral status at discharge: Normal Functional status at discharge: independent ambulation Overall status at discharge: patient is progressing back to baseline Time Spent with Patient Less than 30 minutes Exam Vital Signs (past 8 hours): Vital Signs - 8 hr 3 11/09/17 04:41 11/09/17 08:00 Temperature 97.7 F 97.9 F Pulse Rate 69 61 Respiratory Rate 18 16 Blood Pressure 141/73 H 152/82 H Pulse Oximetry 96 96 Pulse Oximetry 96 Fraction of Inspired Oxygen 28 Oxygen Delivery Method Nasal Cannula Oxygen Flow Rate 0 Narrative Exam Narrative: Very pleasant gentleman in no distress. He reports he feels quite good and is anxious to leave the hospital HEENT: Normocephalic and atraumatic, pupils equal round reactive to light accommodation with anicteric sclera. Lungs: Clear to auscultation bilaterally Heart: Regular rate and rhythm without murmur Abdomen: Soft, minimal tenderness to palpation, active bowel sounds Extremities: No edema Objective Labs Result Diagrams: 11/08/17 05:36 11/08/17 05:36 Labs: Laboratory Results - last 24 hr 11/09/17 11:31 Total Bilirubin 3.2 H Discharge Plan Discharge Plan Patient Disposition: Home, Self-Care Provider Discharge Instructions Diet: Diet as Tolerated Activity: You may shower as desired. Do not soak in water for at least 2 weeks. Continue to apply ice to the incisions for another 48 hr to help with pain and swelling. Other treatments: Diarrhea following cholecystectomy is normal. It should decrease with time and will eventually returned to normal state. I prefer not to treat the diarrhea if possible as it allows your body to adjust naturally to the change in bowel contents. If it becomes too much to tolerate, you may take 1/2 tablet of Imodium up to twice a day. Wound Care Report to your healthcare provider any signs of infection, such as:: chills, fever, night sweats, increased pain and unusual drainage Discharge Data Attending Provider: Lyubov Weaver Admit Date/Time: 11/07/17 02:24
--- NOTE | 2017-11-09 13:19 | PC.NURSE ---
Drain removed and dressed per orders from Dr. Weaver. IV removed. Tele removed. Pt now showering and getting dressed to go home with Spouse. Pt denies pain. Reviewed discharge instructions regarding diet, showering, dressing changes and follow up. Pt denies further questions and states he will call when he is ready to go.
--- NOTE | 2017-11-09 15:18 | CM.DANOTE ---
DCP Assessment: Pt is a 72 yo male, resident of [place]. Pt admitted for hemmorrhagic cholecystitis. Pt's PCP is ? Insurance is Medicare/[employer]. Pt being DC home today. Pt [place] w/spouse on [place] farm and is very indp and active at baseline. Pt eager to get home today. No concerns from CHLOE Jimenez or pt/family about safe DC home, no needs indicated. JESUSITA Armstrong
== END 2017-11-09 13:46 | disposition home or self-care (01) | DRG 417 ==
LOC: ED 01:38 → AC 02:26
PROVIDERS: Admitting Provider Surgery; Emergency Provider Emergency Medicine; Visit Provider Surgery
PROC: 0FT44ZZ Resection of Gallbladder, Percutaneous Endoscopic Approach (ICD-10-PCS; CPT 47562; principal; 2017-11-07 17:15)
DX: K80.00 Calculus of gallbladder with acute cholecystitis without obstruction (principal); K65.1 Peritoneal abscess; N40.0 Benign prostatic hyperplasia without lower urinary tract symptoms; K21.9 Gastro-esophageal reflux disease without esophagitis; E78.5 Hyperlipidemia, unspecified; I10 Essential (primary) hypertension; G47.30 Sleep apnea, unspecified; F95.2 Tourette's disorder
CPT/HCPCS: 36415; 36591; 47562; 76700; 80053; 81001; 82247; 82550; 82553; 83690; 84484; 85025; 88304; 93005; 94760; 94762; 96361; 96374; 96375; 96376; 99222; 99282; 99284; C9113; J1100; J1170; J2405; J2543; J2704; J3010